=== PATIENT | female | born 1965 | race Caucasian/White ===

== ENCOUNTER → 2016-03-21 | Outpatient (CLI) | payer OTHER ==
--- NOTE | 2016-03-21 11:18 | US ---
Ultrasound Pelvis Complete (Transabdominal and Endovaginal) Including Duplex/Doppler Imaging History: Intermenstrual bleeding, N 92.0 Technique: Transabdominal and endovaginal ultrasound images were obtained. Endovaginal images obtain ed for better evaluation of the uterine myometrium and adnexa. Duplex/Doppler imaging of adnexa. Findings: Uterus measures 7.3 x 4.1 x 5.1 cm. Retroverted uterus. Endometrial thickness is 5 mm. No definite uterine leiomyomata. Right ovary measures 2.3 x 1.4 x 2 cm. Left ovary measures 2.4 x 2.1 x 4.4 cm. Normal follicles in marlene th ovaries with a dominant follicle left ovary measuring 1.8 x 1.1 x 1 cm. No adnexal masses. No sig nificant free fluid in the pelvis. Color Doppler flow to both ovaries without torsion. Impression: 1. Retroverted uterus without uterine leiomyomata. 2. Normal endometrial thickness at 5 mm. 3. Normal ovaries without torsion or adnexal masses.
== END ==
LOC: CIMAGING 08:40
PROVIDERS: ATTEND Obstetrics & Gynecology
DX: N85.4 Malposition of uterus (principal); N92.0 Excessive and frequent menstruation with regular cycle
CPT/HCPCS: 76856-PO